=== PATIENT | female | born 1980 ===

== ENCOUNTER 2019-09-02 11:42 | Emergency (ER) | payer SELFPAY ==
[2019-09-02 13:19] VITALS: BP 130/70
[2019-09-02] MEDS ORDERED: NORMAL SALINE 1000 ML 1,000 ML IV ONE (13:27)
[2019-09-02] MEDS ORDERED: DIPHENHYDRAMINE HCL 50 MG/ML VIAL IV ONE (13:27)
[2019-09-02] MEDS ORDERED: METOCLOPRAMIDE HCL INJ/PF 10 MG/2 ML SDV IV ONE (13:27)
--- NOTE | 2019-09-02 13:30 | ER Document Report ---
ED Medical Screen (RME) - General Chief Complaint: Headache, Worst Ever Stated Complaint: HEADACHE Time Seen by Provider: 09/02/19 13:20 Primary Care Provider: ABBIE ROPER MD [Primary Care Provider] - Follow up as needed Notes: Patient is a 38-year-old female who presents the emergency department with a chief complaint of headache. Patient reports she is had a left-sided intermittent headache for 1 week. Patient reports she does not have a history of frequent migraine headaches but has had a migraine in the past and that this is the worst headache of her life. Patient reports that she does take ibuprofen at home with her last dose being around 8 AM. She reports this helps briefly this morning did not help at all. Patient is concerned that she may be dehydrated. Patient reports decreased water intake over the past few weeks that she has been busy and traveling. Patient reports she feels a sharp intermittent stabbing sensation to the left yazidi. Patient reports nausea, lightheadedness. Patient is denies numbness or tingling to the face arms or legs. Patient denies fever or neck pain. Patient reports her last menstrual cycle was August 22. - Related Data Allergies/Adverse Reactions: No Known Allergies Allergy (Verified 09/02/19 13:19) Home Medications: omeprezole Past Medical History - Social History Drug Abuse: None Physical Exam - Vital signs Vitals: Temp Pulse Resp BP Pulse Ox 98.2 F 57 L 16 130/70 H 100 09/02/19 13:15 09/02/19 13:15 09/02/19 13:15 09/02/19 13:15 09/02/19 13:15 Course - Re-evaluation Re-evalutation: 09/02/19 13:29 PERRLA, TM's normal bilaterally, airway patent. Speech clear and appropriate. Denies trauma or fall. I have greeted and performed a rapid initial assessment of this patient. A comprehensive ED assessment and evaluation of the patient, analysis of test results and completion of the medical decision making process will be conducted by additional ED providers. - Vital Signs Vital signs: Temp Pulse Resp BP Pulse Ox 98.2 F 57 L 16 130/70 H 100 09/02/19 13:15 09/02/19 13:15 09/02/19 13:15 09/02/19 13:15 09/02/19 13:15 Doctor's Discharge - Discharge Referrals: ABBIE ROPER MD [Primary Care Provider] - Follow up as needed
--- NOTE | 2019-09-02 14:01 | RADIOLOGY REPORT (SQ) ---
EXAM DESCRIPTION: CT HEAD WITHOUT COMPLETED DATE/TIME: 09/02/2019 1:47 pm REASON FOR STUDY: Worst headache ever COMPARISON: None. TECHNIQUE: Axial images acquired through the brain without intravenous contrast. Images reviewed wi th bone, brain and subdural windows. Additional sagittal and coronal reconstructions were generated. Images stored on PACS. All CT scanners at this facility use dose modulation, iterative reconstruction, and/or weight based d osing when appropriate to reduce radiation dose to as low as reasonably achievable (ALARA). [facility]: Dose Right [facility]: CareDose [facility]: Dose Right [facility]: Teradose 4D [facility]: [employer] RADIATION DOSE: CT Rad equipment meets quality standard of care and radiation dose reduction techniq ues were employed. CTDIvol: 53.2 mGy. DLP: 937 mGy-cm. LIMITATIONS: None. FINDINGS: There is no acute intracranial hemorrhage, vascular territorial infarct, extra-axial fluid collection, mass effect or midline shift. There is no effacement of the cerebral sulci or basal sub arachnoid cisterns. The [place]-white matter differentiation is preserved. The caliber the ventricles is concordant with the degree of sulcation. The mucosal lining of the sphenoid sinuses is thickened. There is no paranasal sinus air-fluid level . The mastoid air cells are clear. The orbits and globes are intact. There is no fracture of the c alvarium. IMPRESSION: 1. No acute intracranial abnormality. 2. Thickening of the mucosal lining of the sphenoid sinuses - correlate clinically for signs and symp toms of an acute sinusitis. EVIDENCE OF ACUTE STROKE: NO. COMMENT: Quality ID # [id number]: Final reports with documentation of one or more dose reduction techniques (e.g., Automated exposure control, adjustment of the mA and/or kV according to patient size, use of iterative reconstruction technique) TECHNICAL DOCUMENTATION: JOB ID: [id number] [employer]- All Rights Reserved Reading location - IP/workstation name: [email or web address]
[2019-09-02] MEDS ORDERED: KETOROLAC TROMETHAMINE INJ/PF 30 MG/1 ML SDV IV ONE (14:05)
--- NOTE | 2019-09-02 14:27 | ER Document Report ---
ED Headache - General Chief Complaint: Headache, Worst Ever Stated Complaint: HEADACHE Time Seen by Provider: 09/02/19 13:20 Primary Care Provider: ABBIE ROPER MD [Primary Care Provider] - Follow up as needed Notes: Patient is a 38-year-old female who presents the emergency department with a chief complaint of headache. Patient reports she is had a left-sided intermittent headache for 1 week. Patient reports she does not have a history of frequent migraine headaches but has had a migraine in the past and that this is the worst headache of her life. Patient reports that she does take ibuprofen at home with her last dose being around 8 AM. She reports this helps briefly this morning did not help at all. Patient is concerned that she may be dehydrated. Patient reports decreased water intake over the past few weeks that she has been busy and traveling. Patient reports she feels a sharp intermittent stabbing sensation to the left mandaeism. Patient reports nausea, lightheadedness. Patient denies numbness or tingling to the face arms or legs. Patient denies fever or neck pain. Patient reports her last menstrual cycle was August 22. and a postnasal drip. Patient states earlier in the week she did have some nasal congestion and runny nose. - Related Data Allergies/Adverse Reactions: No Known Allergies Allergy (Verified 09/02/19 13:19) Home Medications: omeprezole Past Medical History - General Information source: Patient - Social History Smoking Status: Current Every Day Smoker Drug Abuse: None Lives with: Family, Spouse/Significant other Family History: None Patient has suicidal ideation: No Patient has homicidal ideation: No - Past Medical History Cardiac Medical History: Reports: None Pulmonary Medical History: Reports: None EENT Medical History: Reports: None Neurological Medical History: Reports: None Endocrine Medical History: Reports: None Renal/ Medical History: Reports: None Malignancy Medical History: Reports: None GI Medical History: Reports: None Musculoskeletal Medical History: Reports None Skin Medical History: Reports None Psychiatric Medical History: Reports: None Traumatic Medical History: Reports: None Infectious Medical History: Reports: None Review of Systems - Review of Systems Constitutional: No symptoms reported EENT: See HPI Cardiovascular: No symptoms reported Respiratory: No symptoms reported Gastrointestinal: See HPI Genitourinary: No symptoms reported Female Genitourinary: No symptoms reported Musculoskeletal: No symptoms reported Skin: No symptoms reported Hematologic/Lymphatic: No symptoms reported Neurological/Psychological: No symptoms reported Physical Exam - Vital signs Vitals: Temp Pulse Resp BP Pulse Ox 98.2 F 57 L 16 130/70 H 100 09/02/19 13:15 09/02/19 13:15 09/02/19 13:15 09/02/19 13:15 09/02/19 13:15 - Notes Notes: GENERAL: Well-appearing, well-nourished and in no acute distress. HEAD: Atraumatic, normocephalic. EYES: Pupils equal round and reactive to light, extraocular movements intact, sclera anicteric, conjunctiva are normal. ENT: TMs normal, nares patent, oropharynx clear without exudates. Moist mucous membranes. Mild sinus tenderness throughout examination. NECK: Normal range of motion, supple without lymphadenopathy or JVD. LUNGS: Breath sounds clear to auscultation bilaterally and equal. No wheezes rales or rhonchi. HEART: Regular rate and rhythm without murmurs, rubs or gallops. ABDOMEN: Soft, nontender, normoactive bowel sounds. No guarding, no rebound. No masses appreciated. BACK: No cervical, thoracic, lumbar midline tenderness. No saddle anesthesia, normal distal neurovascular exam. GENITOURINARY: Deferred. EXTREMITIES: Normal range of motion, no pitting or edema. No clubbing or cyanosis. NEUROLOGICAL: Cranial nerves II through XII grossly intact. Normal speech, normal gait. PSYCH: Normal mood, normal affect. SKIN: Warm, Dry, normal turgor, no rashes or lesions noted. Course - Re-evaluation Re-evalutation: 09/02/19 17:25 Patient was attempted to call in the lobby for reevaluation but she was not available. I did attempt to call the telephone number in our computer system without answer. Patient eloped. - Vital Signs Vital signs: Temp Pulse Resp BP Pulse Ox 98.2 F 57 L 16 130/70 H 100 09/02/19 13:15 09/02/19 13:15 09/02/19 13:15 09/02/19 13:15 09/02/19 13:15 - Diagnostic Test Radiology reviewed: Reports reviewed Radiology results interpreted by me: 09/02/19 17:[address] 09/02/19 13:27 IMPRESSION: 1. No acute intracranial abnormality. 2. Thickening of the mucosal lining of the sphenoid sinuses - correlate clinically for signs and symptoms of an acute sinusitis. EVIDENCE OF ACUTE STROKE: NO. Discharge - Discharge Clinical Impression: Headache Qualifiers: Headache type: unspecified Headache chronicity pattern: acute headache Disposition: ELOPED Referrals: ABBIE ROPER MD [Primary Care Provider] - Follow up as needed
== END 2019-09-02 20:56 | disposition left against medical advice (07) ==
LOC: ER 11:42
DX: R51 Headache (principal); R11.0 Nausea; R42 Dizziness and giddiness; F17.200 Nicotine dependence, unspecified, uncomplicated; Z79.899 Other long term (current) drug therapy; Z53.20 Procedure and treatment not carried out because of patient's decision for unspecified reasons
CPT/HCPCS: 70450; 99281